=== PATIENT | female | born 1950 | race American Indian/Alaskan Native ===

== ENCOUNTER 2016-11-06 22:57 | Emergency (ER) | payer MEDICARE, OTHER ==
--- NOTE | 2016-11-06 23:52 | C.PDOC ---
History Of Present Illness <Marquez Flowers - Last Filed: 11/07/16 00:02> <Yuan Jc - Last Filed: 11/07/16 03:18> 66F c/o intermittent left side abdominal pain all day today. worse with eating feels like "burning." also reports several episodes of vomiting and watery diarrhea x4 today. recent cold sx incl dry cough- was seen by her pcp a couple weeks ago and given abx for this which she finished. (Marquez Flowers) <Marquez Flowers - Last Filed: 11/07/16 00:02> <Yuan Jc - Last Filed: 11/07/16 03:18> Time Seen by Provider: 11/06/16 23:32 Chief Complaint (Nursing): Abdominal Pain Past Medical History - Medical History PMH: Diabetes, HTN, Hypercholesterolemia, Hyperthyroidism Family History: States: Other (nc) - Social History Hx Tobacco Use: No Hx Alcohol Use: No Hx Substance Use: No - Immunization History Hx Tetanus Toxoid Vaccination: Yes Hx Influenza Vaccination: No Hx Pneumococcal Vaccination: No <Marquez Flowers - Last Filed: 11/07/16 00:02> Vital Signs: Last Vital Signs Temp 97.7 F 11/07/16 02:28 Pulse 60 11/07/16 02:28 Resp 18 11/07/16 02:28 BP 151/66 H 11/07/16 02:28 Pulse Ox 100 11/07/16 02:28 - [facility] Procedures CORONAR ARTERIOGR-2 CATH (09/06/14) LEFT HEART CARDIAC CATH (09/06/14) LT HEART ANGIOCARDIOGRAM (09/06/14) Review Of Systems Except As Marked, All Systems Reviewed And Found Negative. Constitutional: Negative for: Fever, Chills Cardiovascular: Negative for: Chest Pain Respiratory: Negative for: Cough, Shortness of Breath Gastrointestinal: Positive for: Nausea, Vomiting, Abdominal Pain, Diarrhea. Negative for: Melena, Hematochezia Genitourinary: Negative for: Dysuria Neurological: Negative for: Weakness, Numbness, Headache <Marquez Flowers - Last Filed: 11/07/16 00:02> Physical Exam - Physical Exam Appears: Well, Non-toxic, No Acute Distress Skin: Warm, Dry Head: Atraumatic Eye(s): bilateral: PERRL Oral Mucosa: Moist Lips: No Swelling Neck: Normal ROM Cardiovascular: Rhythm Regular Respiratory: No Decreased Breath Sounds, No Accessory Muscle Use, No Rales, No Rhonchi, No Stridor, No Wheezing Gastrointestinal/Abdominal: Bowel Sounds, Soft, No Tenderness, No Distention, No Guarding, No Rebound Neurological/Psych: Oriented x3, Other (no focal deficits) <Marquez Flowers - Last Filed: 11/07/16 00:02> ED Course And Treatment O2 Sat by Pulse Oximetry: 97 <Marquez Flowers - Last Filed: 11/07/16 00:02> - Laboratory Results Result Diagrams: 11/07/16 00:36 11/07/16 00:36 <Yuan Jc - Last Filed: 11/07/16 03:18> Medical Decision Making <Marquez Flowers - Last Filed: 11/07/16 00:02> <Yuan Jc - Last Filed: 11/07/16 03:18> Medical Decision Making: pt endorsed to me pending ct results. ct unremarkable as per vrad. abd soft. no ttp. pt comfortable. given outpt f/u and return precautions (Yuan Jc) Disposition <Marquez Flowers P - Last Filed: 11/07/16 00:02> - Disposition Disposition Time: 02:55 <Yuan Jc - Last Filed: 11/07/16 03:18> - Disposition Referrals: Gutierrez Pang MD [Staff Provider] - Disposition: HOME/ ROUTINE Condition: STABLE Additional Instructions: return to er with worsening symptoms or concerns. please see specialist. Prescriptions: Famotidine [Pepcid] 20 mg PO DAILY #20 tab Instructions: Acute Abdominal Pain (ED) - Clinical Impression Clinical Impression: Abdominal pain
[2016-11-07] MEDS ORDERED: Aluminum Hydroxide/Magnesium Hydroxide Susp (30 mL) PO STA
[2016-11-07] MEDS ORDERED: Sodium Chloride 0.9% 1,000 ML IV ONE
[2016-11-07] MEDS ORDERED: Lidocaine 2% Viscous 100 ml PO STA
[2016-11-07] MEDS ORDERED: Iohexol 350mg/ml 100 ML ONE (00:16)
[2016-11-07] MEDS ORDERED: Aluminum Hydroxide/Magnesium Hydroxide Susp (30 mL) ONE (00:32)
[2016-11-07] MEDS ORDERED: Sodium Chloride 0.9% 1,000 ML ONE (00:32)
[2016-11-07 00:39] LABS: BASO % 0.3 % (0.0-2.0); EOS % 0.3 % (0.0-4.0); HEMATOCRIT 32.7 % (34.0-47.0); LYMPH # 3.1 K/uL (1.0-4.3); LYMPH % 48.4 % (20.0-40.0); MEAN CORPUSCULAR HEMOGLOBIN 27.5 pg (27.0-31.0); MEAN CORPUSCULAR HGB CONC 33.5 g/dL (33.0-37.0); MEAN PLATELET VOLUME 8.1 fL (7.2-11.7); MONO # 0.4 K/uL (0.0-0.8); MONO % 5.7 % (0.0-10.0); NRBC % 0.1 % (0.0-2.0); RED CELL DISTRIBUTION WIDTH 14.9 % (11.5-14.5); WHITE BLOOD COUNT 6.4 K/uL (4.8-10.8)
[2016-11-07 00:47] LABS: URINE BILIRUBIN NEGATIVE (NEGATIVE); URINE BLOOD NEGATIVE (NEGATIVE); URINE COLOR Straw (YELLOW); URINE GLUCOSE (UA) NORMAL (Normal); URINE KETONE NEGATIVE (NEGATIVE); URINE LEUKOCYTE ESTERASE NEG Leu/uL (Negative); URINE PROTEIN NEGATIVE (NEGATIVE); URINE UROBILINOGEN NORMAL mg/dL (0.2-1.0); WBC URINE 1 /hpf (0-5)
[2016-11-07 00:51] LABS: CHLORIDE 85 mmol/L (98-107); POTASSIUM 3.6 mmol/L (3.6-5.2); SODIUM 129 mmol/L (132-148)
[2016-11-07 00:53] LABS: BILIRUBIN,TOTAL 0.3 mg/dL (0.2-1.3); GFR AFRICAN-AMERICAN > 60
[2016-11-07 00:54] LABS: ALB/GLOB RATIO 1.5 (1.0-2.1); ALKALINE PHOSPHATASE 114 U/L (38-126); ALT/SGPT 28 U/L (9-52); AST/SGOT 23 U/L (14-36); BLOOD UREA NITROGEN 12 mg/dL (7-17); CALCIUM 9.1 mg/dl (8.6-10.4); CARBON DIOXIDE 28 mmol/L (22-30); GLUCOSE,RANDOM 190 mg/dL (65-105); TOTAL PROTEIN 7.7 g/dL (6.3-8.3)
[2016-11-07 02:36] VITALS: BP 151/66; PULSE 60; RESP 18; TEMP 97.7; O2SAT 100
--- NOTE | 2016-11-07 02:47 | CT ---
EXAM: CT Abdomen and Pelvis With Intravenous Contrast. CLINICAL HISTORY: 66 years old, female; Pain; Abdominal pain TECHNIQUE: Axial computed tomography images of the abdomen and pelvis with intravenous contrast. This CT exam was performed using one or more of the following dose reduction techniques: automated exposure control, adjustment of the mA and/or kV according to patient size, and/or use of iterative reconstruction technique. Coronal and sagittal reformatted images were created and reviewed. CONTRAST: 100 mL of [id number] administered intravenously. COMPARISON: No relevant prior studies available. FINDINGS: Lower thorax: 0.2 cm nodule vs focal scarring LEFT lower lobe. ABDOMEN: Liver: Unremarkable. No mass. Gallbladder and bile ducts: No calcified stones. No ductal dilation. Pancreas: No ductal dilation. No mass. Spleen: No splenomegaly. Adrenals: No mass. Kidneys and ureters: No mass. No hydronephrosis. Stomach and bowel: No definite mural thickening. No obstruction. Appendix: Normal caliber. No inflammation. PELVIS: Bladder: Unremarkable. Reproductive: Unremarkable as visualized. ABDOMEN and PELVIS: Intraperitoneal space: No significant fluid collection. No free air. Bones/joints: Mild degenerative changes of spine. No acute fracture. Soft tissues: Laparotomy scar. Vasculature: Mild atherosclerotic disease of aorta. No abdominal aortic aneurysm. Lymph nodes: No pathologically enlarged lymph nodes. IMPRESSION: 1. No definite acute intraabdominal abnormality. 2. Incidental/non-acute findings are described above.
== END 2016-11-07 03:03 | disposition home or self-care (01) ==
LOC: C.ER 22:57
DX: R10.9 Unspecified abdominal pain (principal)
CPT/HCPCS: 74177; 80053; 81001; 83690; 85025; 96361; 96374; 99284; J2405; J7040; Q9967

== ENCOUNTER 2016-12-15 23:46 | Emergency (ER) | payer OTHER, MEDICARE ==
--- NOTE | 2016-12-15 23:57 | C.PDOC ---
History Of Present Illness Patient presents to the ER with a complaint of SOB and burning chest pain. Patient states pain worsens when attempting to cough out mucous. Denies any nausea, vomiting, or abdominal pain. Time Seen by Provider: 12/15/16 23:56 Chief Complaint (Nursing): Chest Pain History Per: Patient History/Exam Limitations: no limitations Onset/Duration Of Symptoms: Hrs Current Symptoms Are (Timing): Still Present Severity: Mild Pain Scale Rating Of: 3 Quality: Burning Associated Symptoms: Other (SOB, Chest pain) Modifying Factors: None Exacerbating Factors: Other (When coughing up mucous) Alleviating Factors: None Recent travel outside of the [place]: No Past Medical History Reviewed: Historical Data, Nursing Documentation, Vital Signs Vital Signs: Last Vital Signs Temp 98 F 12/15/16 23:54 Pulse 70 12/15/16 23:54 Resp 20 12/15/16 23:54 BP 185/67 H 12/15/16 23:54 Pulse Ox 97 12/16/16 00:58 - Medical History PMH: Diabetes, HTN, Hypercholesterolemia, Hyperthyroidism - [facility] Procedures CORONAR ARTERIOGR-2 CATH (09/06/14) LEFT HEART CARDIAC CATH (09/06/14) LT HEART ANGIOCARDIOGRAM (09/06/14) Family History: States: No Known Family Hx - Social History Hx Tobacco Use: No Hx Alcohol Use: No Hx Substance Use: No - Immunization History Hx Tetanus Toxoid Vaccination: Yes Hx Influenza Vaccination: No Hx Pneumococcal Vaccination: No Review Of Systems Cardiovascular: Positive for: Chest Pain (Burning) Respiratory: Positive for: Cough, Shortness of Breath, Sputum Gastrointestinal: Negative for: Nausea, Vomiting, Abdominal Pain Physical Exam - Physical Exam Appears: Well, Non-toxic Skin: Warm, Dry Oral Mucosa: Moist Chest: Symmetrical, No Tenderness Cardiovascular: Rhythm Regular, No Murmur Respiratory: No Rales, Rhonchi (Scattered), No Wheezing Gastrointestinal/Abdominal: Soft, No Tenderness Neurological/Psych: Oriented x3 ED Course And Treatment - Laboratory Results Result Diagrams: 12/16/16 00:15 12/16/16 00:15 ECG: Interpreted By Me, Viewed By Me ECG Rhythm: Sinus Rhythm (69), Nonspecific Changes O2 Sat by Pulse Oximetry: 97 Pulse Ox Interpretation: Normal - Radiology CXR: Interpreted by Me, Viewed By Me CXR Interpretation: No: Infiltrates, Fracture, Pnemothorax Progress Note: blood work, nebs ordered. I considered the following diagnoses: acute coronary syndrome, pulmonary embolism, lower respiratory infection, aortic dissection/aneurysm, pneumothorax, pericarditis, esophagitis/GERD, zoster and esophageal rupture but found them to be unlikely based on the history , physical exam, and diagnostics. My conclusions regarding the unlikely diagnoses were based on: the absence of significant EKG abnormalities, the lack of suggestive x-ray findings, the absence of significant abnormalities on cardiac monitoring, the absence of asymmetric pulses. Pt feels better and wants to go home Reevaluation Time: 01:51 Reassessment Condition: Improved Medical Decision Making Medical Decision Making: Upon provider reevaluation patient is feeling better, is medically stable, and requires no further treatment in the ED at this time. Patient will be discharged home with Rx for protonix, nebulizere machine, albuterol. Counseling was provided and all questions were answered regarding diagnosis and need for follow up Dr Park. There is agreement to discharge plan. Return if symptoms persist or worsen. Disposition Counseled Patient/Family Regarding: Studies Performed, Diagnosis, Need For Followup, Rx Given - Disposition Referrals: Zachary Park DO [Staff Provider] - Disposition: HOME/ ROUTINE Disposition Time: 01:52 Condition: FAIR Prescriptions: Albuterol 0.083% [Albuterol Sulfate 3 Ml] 3 ml IH QID PRN #50 neb PRN Reason: Wheezing Pantoprazole Sodium [Protonix] 40 mg PO DAILY #15 ect Instructions: Gastroesophageal Reflux Disease (ED), Asthma (DC), Hyponatremia ( DC) - Clinical Impression Clinical Impression: GERD (gastroesophageal reflux disease), Asthma, Hyponatremia - Scribe Statement The provider has reviewed the documentation as recorded by the Scribfatemeh Martinez All medical record entries made by the Scribe were at my direction and personally dictated by me. I have reviewed the chart and agree that the record accurately reflects my personal performance of the history, physical exam, medical decision making, and the department course for this patient. I have also personally directed, reviewed, and agree with the discharge instructions and disposition.
[2016-12-15 23:58] VITALS: RESP 20; TEMP 98; O2SAT 97
[2016-12-16 00:34] LABS: BASO % 0.4 % (0.0-2.0); EOS % 0.7 % (0.0-4.0); HEMATOCRIT 31.2 % (34.0-47.0); LYMPH # 2.4 K/uL (1.0-4.3); LYMPH % 49.1 % (20.0-40.0); MEAN CELL VOLUME 81.8 fL (81.0-99.0); MEAN CORPUSCULAR HEMOGLOBIN 26.6 pg (27.0-31.0); MEAN CORPUSCULAR HGB CONC 32.6 g/dL (33.0-37.0); MEAN PLATELET VOLUME 7.7 fL (7.2-11.7); MONO # 0.3 K/uL (0.0-0.8); MONO % 6.5 % (0.0-10.0); RED CELL DISTRIBUTION WIDTH 15.1 % (11.5-14.5); WHITE BLOOD COUNT 4.9 K/uL (4.8-10.8)
[2016-12-16] MEDS ORDERED: Sucralfate 1 gm/10 ml Oral Susp UD PO STA (00:39)
[2016-12-16 00:40] LABS: INR 1.1
[2016-12-16 00:40] LABS: VENOUS BLOOD GAS PCO2 45 mmHg (40-60); VENOUS BLOOD PH 7.42 (7.32-7.43)
[2016-12-16] MEDS: Albuterol-Ipratrop 3 mg / 0.5 (3 ml) UD IH SCH ×3 (00:45→01:15)
[2016-12-16] MEDS ORDERED: Albuterol-Ipratrop 3 mg / 0.5 (3 ml) UD ONE ×3 (00:46)
[2016-12-16 00:54] LABS: CHLORIDE 85 mmol/L (98-107); POTASSIUM 3.9 mmol/L (3.6-5.2); SODIUM 124 mmol/L (132-148)
[2016-12-16 00:56] LABS: AST/SGOT 34 U/L (14-36); BILIRUBIN,TOTAL 0.7 mg/dL (0.2-1.3); CARBON DIOXIDE 28 mmol/L (22-30); GFR AFRICAN-AMERICAN > 60
[2016-12-16 00:57] LABS: ALB/GLOB RATIO 1.5 (1.0-2.1); ALKALINE PHOSPHATASE 101 U/L (38-126); ALT/SGPT 15 U/L (9-52); BLOOD UREA NITROGEN 13 mg/dL (7-17); CALCIUM 8.3 mg/dl (8.6-10.4); GLUCOSE,RANDOM 149 mg/dL (65-105); MAGNESIUM 2.1 mg/dL (1.6-2.3); TOTAL PROTEIN 7.5 g/dL (6.3-8.3)
[2016-12-16] MEDS ORDERED: Sodium Chloride 0.9% 500 ML IV ONE (01:29)
[2016-12-16 01:55] VITALS: BP 155/56; PULSE 82
--- NOTE | 2016-12-16 09:05 | RAD ---
HISTORY: SOB COMPARISON: Chest x-ray performed 09/06/14 TECHNIQUE: Chest, one view. FINDINGS: [place] a spicer limited by habitus and hypoinflation. LUNGS: No focal consolidation. Please note that chest x-ray has limited sensitivity for the detection of pulmonary masses. PLEURA: No significant pleural effusion identified. No definite pneumothorax . CARDIOVASCULAR: Borderline cardiomegaly. OSSEOUS STRUCTURES: No acute osseous abnormality identified. VISUALIZED UPPER ABDOMEN: Unremarkable. OTHER FINDINGS: None. IMPRESSION: No active disease.
--- NOTE | 2016-12-20 08:52 | CARD ---
APPROVED REPORT EKG Measurement Heart [id number] <Conclusion> Normal sinus rhythm Normal ECG
== END 2016-12-16 02:22 | disposition home or self-care (01) ==
LOC: C.ER 23:46
DX: K21.9 Gastro-esophageal reflux disease without esophagitis (principal); J45.909 Unspecified asthma, uncomplicated; E87.1 Hypo-osmolality and hyponatremia
CPT/HCPCS: 71010; 80053; 82803; 83735; 84484; 85025; 85610; 85730; 87040; 96374; 99283; J2930

== ENCOUNTER 2017-04-26 02:12 | Emergency (ER) | payer OTHER, MEDICARE ==
[2017-04-26 02:25] VITALS: RESP 16; O2SAT 99
[2017-04-26] MEDS ORDERED: Belladonna-Phenobarbital PO STA (02:53)
[2017-04-26] MEDS ORDERED: Belladonna-Phenobarbital ONE (03:03)
[2017-04-26 03:04] LABS: BASO % 0.4 % (0.0-2.0); EOS % 0.6 % (0.0-4.0); HEMATOCRIT 34.3 % (34.0-47.0); LYMPH # 2.6 K/uL (1.0-4.3); LYMPH % 50.3 % (20.0-40.0); MEAN CELL VOLUME 82.4 fL (81.0-99.0); MEAN CORPUSCULAR HEMOGLOBIN 27.1 pg (27.0-31.0); MEAN CORPUSCULAR HGB CONC 32.8 g/dL (33.0-37.0); MEAN PLATELET VOLUME 7.7 fL (7.2-11.7); MONO # 0.3 K/uL (0.0-0.8); MONO % 5.6 % (0.0-10.0); RED CELL DISTRIBUTION WIDTH 14.7 % (11.5-14.5); WHITE BLOOD COUNT 5.2 K/uL (4.8-10.8)
[2017-04-26 03:06] LABS: URINE BILIRUBIN NEGATIVE (NEGATIVE); URINE BLOOD NEGATIVE (NEGATIVE); URINE COLOR Straw (YELLOW); URINE GLUCOSE (UA) NORMAL (Normal); URINE KETONE NEGATIVE (NEGATIVE); URINE LEUKOCYTE ESTERASE NEG Leu/uL (Negative); URINE PROTEIN NEGATIVE (NEGATIVE); URINE UROBILINOGEN NORMAL mg/dL (0.2-1.0); WBC URINE < 1 /hpf (0-5)
[2017-04-26 03:11] LABS: RBC URINE 1 /hpf (0-3)
--- NOTE | 2017-04-26 03:11 | C.PDOC ---
History Of Present Illness 66 year old female who presents to the ER with a complaint of cramping LLQ pain radiating to the left suprapubic and periumbilical area that began yesterday. Patient reports she has been constipated since Sunday; she drank magnesium citrate yesterday and had a large bowel movement, since then pain has increased and is cramping in nature. Patient notes at home her pain was a 10/10 and now in the ER it is a 6/10; denies nausea, vomiting, or diarrhea. Time Seen by Provider: 04/26/17 02:36 Chief Complaint (Nursing): Abdominal Pain History Per: Patient History/Exam Limitations: no limitations Onset/Duration Of Symptoms: Days Current Symptoms Are (Timing): Still Present Pain Scale Rating Of: 6 Location Of Pain/Discomfort: LLQ, Periumbilical Radiation Of Pain To:: None Quality Of Discomfort: Cramping Associated Symptoms: Constipation. denies: Nausea, Vomiting, Diarrhea, Urinary Symptoms Exacerbating Factors: None Alleviating Factors: None Recent travel outside of the [place]: No Abnormal Vaginal Bleeding: No Past Medical History Reviewed: Historical Data, Nursing Documentation, Vital Signs Vital Signs: Last Vital Signs Temp 98.1 F 04/26/17 04:39 Pulse 65 04/26/17 04:39 Resp 16 04/26/17 04:39 BP 163/73 H 04/26/17 04:39 Pulse Ox 99 04/26/17 04:47 - Medical History PMH: Diabetes, HTN, Hypercholesterolemia, Hyperthyroidism - [facility] Procedures CORONAR ARTERIOGR-2 CATH (09/06/14) LEFT HEART CARDIAC CATH (09/06/14) LT HEART ANGIOCARDIOGRAM (09/06/14) Family History: States: Unknown Family Hx - Social History Hx Tobacco Use: No Hx Alcohol Use: No Hx Substance Use: No - Immunization History Hx Tetanus Toxoid Vaccination: Yes Hx Influenza Vaccination: No Hx Pneumococcal Vaccination: No Review Of Systems Constitutional: Negative for: Fever, Chills Gastrointestinal: Positive for: Abdominal Pain. Negative for: Nausea, Vomiting , Diarrhea Genitourinary: Negative for: Dysuria Physical Exam - Physical Exam Appears: Non-toxic Skin: Normal Color, Warm, Dry Head: Atraumatic, Normacephalic Eye(s): bilateral: Normal Inspection Oral Mucosa: Moist Chest: Symmetrical, No Tenderness Cardiovascular: Rhythm Regular, No Murmur Respiratory: Normal Breath Sounds, No Rales, No Rhonchi, No Wheezing Gastrointestinal/Abdominal: Soft, Tenderness (Mild LLQ), No Distention, No Guarding, No Rebound, Other (Mid suprapubic scar secondary to ) Back: No CVA Tenderness Neurological/Psych: Oriented x3, Normal Speech, Normal Cognition Gait: Steady ED Course And Treatment - Laboratory Results Result Diagrams: 04/26/17 03:01 04/26/17 03:01 O2 Sat by Pulse Oximetry: 99 (Room air) Pulse Ox Interpretation: Normal - Other Rad Obstructive series X-Ray: Interpreted by Me, Viewed By Me Interpretation: Moderate stools Progress Note: Blood work and abdominal x-ray ordered. PO administered. Pt reports improved pain, abdomen is soft NT. Labs and ABD XR reviewed and d/w pt. Plan d/w pt who does agree. Pt feels better to go home and will follow up with PMD. Advised to take miralax with high fiber diet. Return precautions explained and understood by pt. Disposition Counseled Patient/Family Regarding: Diagnosis, Need For Followup - Disposition Disposition: HOME/ ROUTINE Disposition Time: 04:41 Condition: STABLE Additional Instructions: Please follow up with PMD High fiber diet Take miralax as directed Return to ER if worse Prescriptions: Polyethylene Glycol 3350 [Miralax] 17 gm PO DAILY #1 bottle Instructions: Constipation (ED), High Fiber Diet (ED) Forms: [facility] (Armenian) - Clinical Impression Clinical Impression: Constipation, Abdominal pain - Scribe Statement The provider has reviewed the documentation as recorded by the Scribfatemeh Martinez All medical record entries made by the Scribe were at my direction and personally dictated by me. I have reviewed the chart and agree that the record accurately reflects my personal performance of the history, physical exam, medical decision making, and the department course for this patient. I have also personally directed, reviewed, and agree with the discharge instructions and disposition.
[2017-04-26 04:06] LABS: ALB/GLOB RATIO 1.5 (1.0-2.1); ALKALINE PHOSPHATASE 108 U/L (38-126); ALT/SGPT 25 U/L (9-52); AST/SGOT 42 U/L (14-36); BILIRUBIN,TOTAL 0.2 mg/dL (0.2-1.3); BLOOD UREA NITROGEN 11 mg/dL (7-17); CALCIUM 9.7 mg/dl (8.6-10.4); CARBON DIOXIDE 28 mmol/L (22-30); CHLORIDE 91 mmol/L (98-107); GFR AFRICAN-AMERICAN > 60; GLUCOSE,RANDOM 126 mg/dL (65-105); POTASSIUM 3.5 mmol/L (3.6-5.2); SODIUM 133 mmol/L (132-148)
[2017-04-26 04:43] VITALS: BP 163/73; PULSE 65; TEMP 98.1
--- NOTE | 2017-04-26 08:24 | RAD ---
PROCEDURE: Radiographs of the chest and abdomen (obstructive series) HISTORY: abd pain COMPARISON: CT abdomen and pelvis 11/07/2016 TECHNIQUE: AP radiograph of the chest, with upright and supine radiographs of the abdomen. FINDINGS: CHEST: Lungs: Clear. Cardiovascular: Borderline mild cardiomegaly No pulmonary vascular congestion. Pleura: No pleural fluid. No pneumothorax. Other findings: None. ABDOMEN AND PELVIS: Bowel: Redundant right colon with moderate stool retention. No evidence of mechanical obstruction. Free air: None. Bones: Thoracolumbar spondylosis. Right iliac bone sub cm benign bone island Other findings: None. IMPRESSION: Redundant colon with moderate right colonic stool retention No evidence of mechanical bowel obstruction.
== END 2017-04-26 04:57 | disposition home or self-care (01) ==
LOC: C.ER 02:12
DX: K59.00 Constipation, unspecified (principal); R10.32 Left lower quadrant pain

== ENCOUNTER 2018-06-08 01:49 | Emergency (ER) | payer OTHER, MEDICARE ==
--- NOTE | 2018-06-08 02:53 | C.PDOC ---
History Of Present Illness 68 year old female presents to the ED c/o abdominal pain, mostly in the left upper abdomen for the past 2 days. Patient also reports having 1 episode of vomiting "acid" today. Patient states she has been taking Omeoprazole before and started taking Nexum yesterday. Patient had 2 previous visits to the ED with similar presentation, patient had a CT scan done on October 2016 and Obstructive series X-ray done on April 2018 that were both negative. Patient denies fever, chills, diarrhea, rash, recent travel, sick contacts. <Niya Montoya - Last Filed: 06/08/18 05:05> <Clary Kiran - Last Filed: 06/08/18 03:55> History Per: Patient History/Exam Limitations: no limitations Onset/Duration Of Symptoms: Days (2) Current Symptoms Are (Timing): Still Present Location Of Pain/Discomfort: Diffuse Radiation Of Pain To:: None Quality Of Discomfort: "Pain" Associated Symptoms: Vomiting. denies: Nausea, Diarrhea, Loss Of Appetite, Urinary Symptoms Recent travel outside of the [place]: No Additional History Per: Patient Abnormal Vaginal Bleeding: No <Niya Montoya - Last Filed: 06/08/18 05:05> Time Seen by Provider: 06/08/18 02:39 Chief Complaint (Nursing): Abdominal Pain Past Medical History Vital Signs: Last Vital Signs Temp 98.6 F 06/08/18 02:12 Pulse 65 06/08/18 02:12 Resp 18 06/08/18 02:12 BP 175/77 H 06/08/18 02:12 Pulse Ox 96 06/08/18 02:53 - [facility] Procedures CORONAR ARTERIOGR-2 CATH (09/06/14) LEFT HEART CARDIAC CATH (09/06/14) LT HEART ANGIOCARDIOGRAM (09/06/14) <Clary Kiran - Last Filed: 06/08/18 03:55> Reviewed: Historical Data, Nursing Documentation, Vital Signs Vital Signs: Last Vital Signs Temp 98.6 F 06/08/18 02:12 Pulse 65 06/08/18 02:12 Resp 18 06/08/18 02:12 BP 175/77 H 06/08/18 02:12 Pulse Ox 96 06/08/18 02:12 - Medical History PMH: Diabetes, HTN, Hypercholesterolemia, Hyperthyroidism Denies: Chronic Kidney Disease Surgical History: No Surg Hx - [facility] Procedures CORONAR ARTERIOGR-2 CATH (09/06/14) LEFT HEART CARDIAC CATH (09/06/14) LT HEART ANGIOCARDIOGRAM (09/06/14) Family History: States: Unknown Family Hx - Social History Hx Tobacco Use: No Hx Alcohol Use: No Hx Substance Use: No - Immunization History Hx Tetanus Toxoid Vaccination: Yes Hx Influenza Vaccination: No Hx Pneumococcal Vaccination: No <Niya Montoya - Last Filed: 06/08/18 05:05> Review Of Systems Constitutional: Negative for: Fever, Chills Cardiovascular: Negative for: Chest Pain Respiratory: Negative for: Cough, Shortness of Breath Gastrointestinal: Positive for: Vomiting, Abdominal Pain. Negative for: Nausea, Diarrhea Skin: Negative for: Rash Neurological: Negative for: Weakness, Numbness <Niya Montoya - Last Filed: 06/08/18 05:05> Physical Exam - Physical Exam Appears: Non-toxic, No Acute Distress Skin: Normal Color, Warm, Dry Head: Atraumatic, Normacephalic Eye(s): bilateral: Normal Inspection Oral Mucosa: Moist Neck: Normal ROM, Supple Chest: Symmetrical Cardiovascular: Rhythm Regular Respiratory: Normal Breath Sounds, No Rales, No Rhonchi, No Wheezing Gastrointestinal/Abdominal: Soft, No Tenderness, No Guarding, No Rebound Extremity: Normal ROM, No Tenderness, No Swelling Neurological/Psych: Oriented x3, Normal Speech, Normal Cognition Gait: Steady <Niya Montoya - Last Filed: 06/08/18 05:05> ED Course And Treatment - Laboratory Results Result Diagrams: 06/08/18 03:21 06/08/18 03:21 ECG: Interpreted By Me, Viewed By Me ECG Rhythm: Sinus Rhythm (60), Nonspecific Changes <Clary Kiran - Last Filed: 06/08/18 03:55> - Laboratory Results Result Diagrams: 06/08/18 03:21 06/08/18 03:21 ECG: Interpreted By Me, Viewed By Me ECG Rhythm: Sinus Rhythm (60), Nonspecific Changes O2 Sat by Pulse Oximetry: 96 (ON RA) Pulse Ox Interpretation: Normal Progress Note: Plan: - EKG. - Labs. - CXR. - Protonix 40 mg IVP. - On re- evaluation patient feels better and is stable to be d/c home with PMD follow up. - IV fluids. - Zofran 4 mg IVP. - UA <Niya Montoya - Last Filed: 06/08/18 05:05> Disposition <Clary Kiran - Last Filed: 06/08/18 03:55> - Disposition Disposition Time: 04:52 <Niya Montoya - Last Filed: 06/08/18 05:05> - Disposition Referrals: FAMILY PROVIDER,NO [Primary Care Provider] - Disposition: HOME/ ROUTINE Condition: IMPROVED Additional Instructions: Follow up with your PMD within 1-2 days. Return to ED immediately if feel worse. Prescriptions: Famotidine [Pepcid] 20 mg PO BID #20 tab Instructions: Acute Abdomen (Belly Pain), Adult (DC) Forms: [email or web address] (Tajik) - Clinical Impression Clinical Impression: Abdominal pain - PA / POOL INSTALLER / Resident Statement MD/DO has reviewed & agrees with the documentation as recorded. - Scribe Statement The provider has reviewed the documentation as recorded by the Scribe Armaan Meza All medical record entries made by the Scribe were at my direction and personally dictated by me. I have reviewed the chart and agree that the record accurately reflects my personal performance of the history, physical exam, medical decision making, and the department course for this patient. I have also personally directed, reviewed, and agree with the discharge instructions and disposition. <Niya Montoya - Last Filed: 06/08/18 05:05>
[2018-06-08] MEDS ORDERED: Sodium Chloride 0.9% 1,000 ML IV STA (02:54)
[2018-06-08 03:25] LABS: BASO % 0.3 % (0.0-2.0); EOS % 0.6 % (0.0-4.0); HEMOGLOBIN 10.6 g/dL (11.0-16.0); LYMPH # 2.6 K/uL (1.0-4.3); LYMPH % 45.8 % (20.0-40.0); MEAN CELL VOLUME 82.2 fL (81.0-99.0); MEAN CORPUSCULAR HEMOGLOBIN 27.1 pg (27.0-31.0); MEAN PLATELET VOLUME 7.8 fL (7.2-11.7); MONO # 0.3 K/uL (0.0-0.8); NEUT # 2.7 K/uL (1.8-7.0); NEUT % 47.3 % (50.0-75.0); RBC 3.92 Mil/uL (3.80-5.20); RED CELL DISTRIBUTION WIDTH 14.6 % (11.5-14.5); WHITE BLOOD COUNT 5.7 K/uL (4.8-10.8)
[2018-06-08 03:36] LABS: ALB/GLOB RATIO 1.7 (1.0-2.1); ALBUMIN 4.5 g/dL (3.5-5.0); ALT/SGPT 17 U/L (9-52); AST/SGOT 19 U/L (14-36); BLOOD UREA NITROGEN 10 mg/dL (7-17); CALCIUM 9.6 mg/dl (8.6-10.4); GFR NON-AFRICAN AMERICAN > 60; LIPASE 56 U/L (23-300)
[2018-06-08 03:39] LABS: SQUAMOUS EPITHIAL < 1 /hpf (0-5); URINE BILIRUBIN NEGATIVE (NEGATIVE); URINE BLOOD NEGATIVE (NEGATIVE); URINE CLARITY Clear (Clear); URINE COLOR Straw (YELLOW); URINE GLUCOSE (UA) NORMAL (Normal); URINE LEUKOCYTE ESTERASE NEG Leu/uL (Negative); URINE PROTEIN NEGATIVE (NEGATIVE); URINE UROBILINOGEN NORMAL mg/dL (0.2-1.0)
[2018-06-08 04:01] LABS: INR 1.1; PROTHROMBIN TIME 12.3 SECONDS (9.7-12.2)
[2018-06-08 04:07] VITALS: BP 156/70; PULSE 60; RESP 16; TEMP 98.7
[2018-06-08 04:15] VITALS: O2SAT 96
--- NOTE | 2018-06-08 06:56 | RAD ---
Date of service: 06/08/2018 HISTORY: Abdominal pain COMPARISON: 12/16/2016 FINDINGS: LUNGS: No active pulmonary disease. PLEURA: No significant pleural effusion identified, no pneumothorax apparent. CARDIOVASCULAR: No atherosclerotic calcification present Normal. OSSEOUS STRUCTURES: No significant abnormalities. VISUALIZED UPPER ABDOMEN: Normal. OTHER FINDINGS: None. IMPRESSION: No active disease.
--- NOTE | 2018-06-11 19:37 | CARD ---
APPROVED REPORT Date of service: 06/08/2018 EKG Measurement Heart [id number] [place] [id number] <Conclusion> Normal sinus rhythm Normal ECG
== END 2018-06-08 05:05 | disposition home or self-care (01) ==
LOC: C.ER 01:49
DX: R10.12 Left upper quadrant pain (principal)
CPT/HCPCS: 71045; 80053; 81001; 83690; 85025; 85610; 85730; 93005; 96361; 96374; 96375; 99283; C9113; J2405; J7030

== ENCOUNTER 2018-10-16 08:58 | Emergency (ER) | payer OTHER, MEDICARE ==
[2018-10-16 09:11] VITALS: BMI 28.7
[2018-10-16 09:15] VITALS: RESP 18
[2018-10-16] MEDS ORDERED: Iohexol 240 (50 ml) PO STA (09:43)
--- NOTE | 2018-10-16 09:43 | C.PDOC ---
History Of Present Illness RECUR LUQ PAIN X 1 WK. HO PRIOR SIM SX, SEEN 05/2018 FOR SAME. PS SAW PMD LAST WEEK FOR SAME, ON PPI BUT NO IMPROVE. PAIN LOCALIZED LUQ, WORSE AFTER EATING. CURRENTLY ASYMPT. HO CONSTIPATION. PSH CSECT. NO NV, FEVER. EXAM NONTOXIC ABD SOFT NT ND NO R/G REMAINDER NEG Time Seen by Provider: 10/16/18 09:24 Chief Complaint (Nursing): Cough, Cold, Congestion History Per: Patient History/Exam Limitations: no limitations Onset/Duration Of Symptoms: Days Current Symptoms Are (Timing): Gone Severity: Moderate Location Of Pain/Discomfort: LUQ Past Medical History Reviewed: Historical Data, Nursing Documentation, Vital Signs Vital Signs: Last Vital Signs Temp 98.0 F 10/16/18 09:13 Pulse 65 10/16/18 09:13 Resp 18 10/16/18 09:13 BP 208/71 H 10/16/18 09:13 Pulse Ox 99 10/16/18 09:13 - Medical History PMH: Diabetes, HTN, Hypercholesterolemia, Hyperthyroidism Denies: Chronic Kidney Disease Surgical History: - [facility] Procedures CORONAR ARTERIOGR-2 CATH (09/06/14) LEFT HEART CARDIAC CATH (09/06/14) LT HEART ANGIOCARDIOGRAM (09/06/14) Family History: States: No Known Family Hx - Social History Hx Tobacco Use: No Hx Alcohol Use: No Hx Substance Use: No - Immunization History Hx Tetanus Toxoid Vaccination: Yes Hx Influenza Vaccination: No Hx Pneumococcal Vaccination: No Review Of Systems Except As Marked, All Systems Reviewed And Found Negative. Constitutional: Negative for: Fever, Chills Gastrointestinal: Positive for: Abdominal Pain. Negative for: Nausea, Vomiting, Diarrhea Physical Exam - Physical Exam Appears: Non-toxic Skin: Normal Color, Warm, Dry Head: Atraumatic, Normacephalic Eye(s): bilateral: Normal Inspection Cardiovascular: Rhythm Regular Respiratory: Normal Breath Sounds, No Rales, No Rhonchi, No Wheezing, Other (NARD) Gastrointestinal/Abdominal: Soft, No Tenderness, No Distention, No Guarding, No Rebound Neurological/Psych: Oriented x3, Normal Speech ED Course And Treatment - Laboratory Results Result Diagrams: 10/16/18 09:56 10/16/18 09:56 ECG: Interpreted By Me ECG Rhythm: Sinus Bradycardia ECG Interpretation: Normal Rate From EC O2 Sat by Pulse Oximetry: 99 (RA) Pulse Ox Interpretation: Normal - Radiology CXR: Interpreted by Me, Viewed By Me CXR Interpretation: Yes: No Acute Disease, Other (unchanged from 06/08/18) Progress - Re-Evaluation Re-evaluation Note: 10/16/18 12:48 APPEARS COMFORTABLE NAD. NO ACUTE FINDINGS CT, US. PT ADVISED NEED FOR PMD FU, POSSIBLE GI REEVAL - Data Reviewed Data Reviewed: Lab, Diagnostic imaging, EKG, Old records Medical Decision Making Medical Decision Making: Plan: --Labs --UA --ECG --CXR --CT-Abd & Pelv. Disposition Counseled Patient/Family Regarding: Studies Performed, Diagnosis, Need For Followup, Rx Given - Disposition Referrals: YOUR,PMD [Other] Disposition: HOME/ ROUTINE Disposition Time: 12:48 Condition: GOOD Prescriptions: Sucralfate [Carafate] 1 gm PO Q6 #12 tab Instructions: Acute Abdomen (Belly Pain), Adult (DC) Forms: [employer] (Estonian) - Clinical Impression Clinical Impression: Abdominal pain - Scribe Statement The provider has reviewed the documentation as recorded by the Magdielibe Hina Raygoza Provider Attestation: All medical record entries made by the Scribe were at my direction and personally dictated by me. I have reviewed the chart and agree that the record accurately reflects my personal performance of the history, physical exam, medical decision making, and the department course for this patient. I have also personally directed, reviewed, and agree with the discharge instructions and disposition.
[2018-10-16] MEDS ORDERED: Iohexol 240 (50 ml) ONE (09:57)
[2018-10-16 10:02] LABS: URINE BILIRUBIN NEGATIVE (NEGATIVE); URINE BLOOD NEGATIVE (NEGATIVE); URINE CLARITY Clear (Clear); URINE COLOR Yellow (YELLOW); URINE GLUCOSE (UA) NORMAL (Normal); URINE LEUKOCYTE ESTERASE NEG Leu/uL (Negative); URINE PROTEIN NEGATIVE (NEGATIVE); URINE UROBILINOGEN NORMAL mg/dL (0.2-1.0)
[2018-10-16 10:04] LABS: BASO % 0.6 % (0.0-2.0); EOS % 0.4 % (0.0-4.0); HEMOGLOBIN 11.4 g/dL (11.0-16.0); LYMPH # 2.6 K/uL (1.0-4.3); LYMPH % 45.5 % (20.0-40.0); MEAN CORPUSCULAR HGB CONC 33.1 g/dL (33.0-37.0); MEAN PLATELET VOLUME 8.4 fL (7.2-11.7); MONO # 0.4 K/uL (0.0-0.8); MONO % 6.9 % (0.0-10.0); NEUT # 2.6 K/uL (1.8-7.0); NEUT % 46.6 % (50.0-75.0); RBC 4.07 Mil/uL (3.80-5.20); RED CELL DISTRIBUTION WIDTH 14.8 % (11.5-14.5); WHITE BLOOD COUNT 5.7 K/uL (4.8-10.8)
[2018-10-16 10:11] LABS: ALB/GLOB RATIO 1.7 (1.0-2.1); ALBUMIN 4.9 g/dL (3.5-5.0); ALT/SGPT 19 U/L (9-52); AST/SGOT 21 U/L (14-36); BLOOD UREA NITROGEN 10 mg/dL (7-17); CALCIUM 9.3 mg/dl (8.6-10.4); GFR NON-AFRICAN AMERICAN > 60; LIPASE 54 U/L (23-300); MEAN CELL VOLUME 84.6 fL (81.0-99.0)
[2018-10-16] MEDS ORDERED: Iodixanol 320 MG/ML 100 ML BOTTLE IV ONE ×2 (10:22→11:25)
--- NOTE | 2018-10-16 11:12 | US ---
Date of service: 10/16/2018 HISTORY: abd pain COMPARISON: CT abdomen and pelvis with IV contrast performed 11/07/16 TECHNIQUE: Sonographic evaluation of the right upper quadrant of the abdomen. FINDINGS: LIVER: Measures 13.6 cm in length. Echogenic liver may be seen in setting of hepatic parenchymal disease or fatty infiltration. No focal hepatic mass identified. The main portal vein appears patent with normal directional flow. No intrahepatic bile duct dilatation. GALLBLADDER: No gallstones. No gallbladder wall thickening or pericholecystic edema. Negative sonographic Sofia's sign as assessed by the microbiology laboratory manager. COMMON BILE DUCT: Measures 3 mm. PANCREAS: Not well-visualized. RIGHT KIDNEY: Measures approximately 10.8 x 4.5 x 4.7 cm. No obstructing calculus or hydronephrosis identified. AORTA: Limited visualization appears grossly unremarkable. IVC: Limited visualization appears grossly unremarkable. OTHER FINDINGS: None . IMPRESSION: Echogenic liver may be seen in setting of hepatic parenchymal disease or fatty infiltration.
--- NOTE | 2018-10-16 11:29 | RAD ---
Date of service: 10/16/2018 HISTORY: Abdominal pain; left upper quadrant. COMPARISON: Comparison chest 06/08/2018. TECHNIQUE: Chest PA and lateral FINDINGS: LUNGS: No active pulmonary disease. PLEURA: No significant pleural effusion identified. No pneumothorax apparent. CARDIOVASCULAR: Minimal aortic atherosclerotic calcification present. Normal cardiac size. No pulmonary vascular congestion. OSSEOUS STRUCTURES: Mild multilevel degenerative spondylosis of the thoracic spine VISUALIZED UPPER ABDOMEN: Normal. OTHER FINDINGS: None. IMPRESSION: No active disease.
--- NOTE | 2018-10-16 12:30 | CT ---
PROCEDURE: CT Abdomen and Pelvis with oral and IV contrast. HISTORY: abd pain LUQ RO OBSTRUCT COMPARISON: Limited abdominal ultrasound performed 10/16/18 CT abdomen pelvis with contrast performed 11/07/16 TECHNIQUE: Contiguous axial images of the abdomen and pelvis. Oral and IV contrast was administered. Coronal and Sagittal reformats generated and reviewed. Contrast dose: 100 cc Visipaque 320 IV Radiation dose: Total exam DLP = 800.57 mGy-cm. This CT exam was performed using one or more of the following dose reduction techniques: Automated exposure control, adjustment of the mA and/or kV according to patient size, and/or use of iterative reconstruction technique. FINDINGS: LOWER THORAX: No visible consolidation, pleural effusion, or pneumothorax. Stable appearing 2 mm left lower lobe nodule. Gastroesophageal reflux. Small to moderate hiatal hernia and marked distal esophageal wall thickening. LIVER: Unremarkable. GALLBLADDER AND BILE DUCTS: Unremarkable. PANCREAS: Unremarkable. SPLEEN: Unremarkable. ADRENALS: Unremarkable. KIDNEYS AND URETERS: The kidneys enhance symmetrically. No hydronephrosis or obstructing renal calculus. BLADDER: The urinary bladder appears unremarkable. REPRODUCTIVE: Uterus is present. Probable bilateral ovarian cysts. APPENDIX: The appendix appears within normal limits of caliber. No secondary signs of acute appendicitis. BOWEL: The stomach is nondistended. The bowel loops appear within normal limits of caliber without evidence of intestinal obstruction. PERITONEUM: No significant free fluid. No definite free air. LYMPH NODES: No bulky lymphadenopathy identified. VASCULATURE: No aortic aneurysm. Atherosclerotic calcifications of the aorta. BONES: 6 mm anterolisthesis of L4 on L5. Degenerative changes. OTHER FINDINGS: None. IMPRESSION: Probable bilateral ovarian cysts. Pelvic ultrasound recommended for further evaluation. Small to moderate hiatal hernia with marked distal esophageal wall thickening. Gastroesophageal reflux. Recommend clinical correlation including outpatient endoscopy if indicated. Stable appearing left lower lobe pulmonary nodule.
[2018-10-16 13:02] VITALS: BP 168/68; PULSE 74; TEMP 98.4; O2SAT 100
== END 2018-10-16 13:05 | disposition home or self-care (01) ==
LOC: C.ER 08:58
DX: R10.9 Unspecified abdominal pain (principal); I10 Essential (primary) hypertension; E11.9 Type 2 diabetes mellitus without complications; E78.00 Pure hypercholesterolemia, unspecified
CPT/HCPCS: 71046; 74177; 76705; 80053; 81001; 83690; 85025; 93005; 99283; Q9966; Q9967